=== PATIENT | female | born 2000 | race Caucasian/White ===

== ENCOUNTER 2023-03-23 23:32 | Emergency (ER) | payer MEDICAID, OTHER ==
[~2023-03-23] VITALS: Ht 152.4 cm; Wt 68.5 kg
[2023-03-23 23:46] VITALS: BP 111/75; PULSE 99; RESP 16; TEMP 98.1; O2SAT 99
[2023-03-24] MEDS ORDERED: ONDANSETRON 4 MG/2 ML VIAL IVP ONE (00:35)
[2023-03-24] MEDS ORDERED: NACL 0.9% 1,000 ML IV ONE (00:35)
[2023-03-24 00:53] LABS: BASOPHILS % (AUTO) 0.4 % (0.0-2.0); EOSINOPHILS % (AUTO) 0.5 % (0.0-4.0); HEMATOCRIT 29.3 % (36-48); HEMOGLOBIN 9.6 g/dL (12.0-16.0); LYMPHOCYTES # (AUTO) 1.2 K/uL (2.5-16.5); MEAN CORPUSCULAR HEMOGLOBIN 22 pg (27-31); MEAN CORPUSCULAR HGB CONC 33 g/dL (33-37); MEAN CORPUSCULAR VOLUME 66.2 fL (80-94); MONOCYTES # (AUTO) 0.3 K/uL (0.8-1.0); MONOCYTES % (AUTO) 3.1 % (1.7-9.3); NEUTROPHILS # (AUTO) 7.5 K/uL (1.8-7.7); PLATELET COUNT (AUTO) 255 K/uL (140-450); RED BLOOD CELL COUNT(AUTO) 4.43 MIL/uL (4.20-5.40); RED CELL DISTRIBUTION WIDTH 16.8 % (11.6-13.7)
[2023-03-24 01:05] LABS: ANION GAP 15.5 (8-16); CALCIUM 8.7 mg/dL (8.5-10.1); CREATININE 0.6 mg/dL (0.6-1.3); POTASSIUM 3.5 mmol/L (3.5-5.1)
[2023-03-24 01:11] LABS: ALBUMIN 2.6 g/dL (3.4-5.0); BILIRUBIN,DIRECT 0.1 mg/dL (0.0-0.3); TOTAL BILIRUBIN 0.6 mg/dL (0.0-1.0)
[2023-03-24 02:23] LABS: APPEARANCE,URINE CLEAR (CLEAR); BILIRUBIN,URINE NEGATIVE (NEGATIVE); BLOOD, URINE NEGATIVE (NEGATIVE); COLOR,URINE YELLOW (YELLOW); LEUKOCYTE ESTERASE ,URINE TRACE (NEGATIVE); NITRITE, URINE POSITIVE (NEGATIVE); PROTEIN,URINE 1+ (NEGATIVE); UGLUCOSE NEGATIVE (NEGATIVE)
[2023-03-24 02:32] VITALS: O2SAT 99
[2023-03-24 02:37] LABS: BACTERIA,URINE 3+ /HPF (None Seen); RBC,URINE 0-5 /HPF (0-5)
[2023-03-24 02:38] LABS: MUCUS,URINE 2+ /LPF (None Seen); SQUAMOUS EPITHELIAL CELL,UR 80-100 /LPF (0-3 (FEW)); TRICHOMONAS,URINE None Seen /HPF (None Seen); YEAST,URINE None Seen /HPF (None Seen)
[2023-03-24] MEDS ORDERED: NITR100C7 PO (03:00)
[2023-03-24] MEDS ORDERED: ONDA-188 SL (03:00)
== END 2023-03-24 00:31 | disposition home or self-care (01) ==
LOC: MED 23:32
DX: O23.43 Unspecified infection of urinary tract in pregnancy, third trimester (principal); Z3A.37 37 weeks gestation of pregnancy
CPT/HCPCS: 36415; 80048; 80076; 81001; 85025; 87086; 96361; 96374; 99283; J2405; J7030